=== PATIENT | female | born 1980 | race Caucasian/White ===

== ENCOUNTER 2020-12-04 08:19 | Outpatient (CLI) | payer BC | END 2020-12-04 08:20 | disposition home or self-care (01) | LOC: ULT 08:19 | PROVIDERS: ATTEND Internal Medicine Gastroenterology | DX: K21.9 Gastro-esophageal reflux disease without esophagitis (principal); K64.8 Other hemorrhoids; R06.6 Hiccough; K64.4 Residual hemorrhoidal skin tags | CPT/HCPCS: 93975 ==

== ENCOUNTER 2020-12-17 08:07 | Outpatient (CLI) | payer BC | END 2020-12-17 08:08 | disposition home or self-care (01) | LOC: NM 08:07 | PROVIDERS: ATTEND Internal Medicine Gastroenterology | DX: R14.2 Eructation (principal); T18.1 Foreign body in esophagus | CPT/HCPCS: 78264; A9541 ==

== ENCOUNTER 2022-05-27 08:07 | Outpatient (CLI) | payer BC ==
[2022-05-27 13:29] LABS: ANA Symphony (Qualitative) Negative (Negative); ANA Symphony (Quantitative) 0.5 Ratio (< 0.7 Negative); CCP IgG Antibody 3.7 EliAU/mL (<7 Negative); Rheumatoid Factor IgA Antibody 4.8 IU/mL (<14 Negative); Rheumatoid Factor IgM Antibody 1.7 IU/mL (<3.5 Negative); dsDNA IgG Antibody 1.1 IU/mL (<10 Negative)
== END 2022-05-27 08:08 | disposition home or self-care (01) ==
LOC: SCSRAD 08:07
PROVIDERS: ATTEND Family Medicine
DX: M25.542 Pain in joints of left hand (principal)
CPT/HCPCS: 36415; 83520; 85652; 86038; 86140; 86200; 86225

== ENCOUNTER 2023-09-01 14:19 | Outpatient (CLI) | payer BC | END 2023-09-01 14:20 | disposition home or self-care (01) | LOC: SCSMRI 14:19 | PROVIDERS: ATTEND Family Medicine | DX: R19.00 Intra-abdominal and pelvic swelling, mass and lump, unspecified site (principal); D25.9 Leiomyoma of uterus, unspecified; N80.03 Adenomyosis of the uterus | CPT/HCPCS: 72197 ==